=== PATIENT | female | born 2005 | race Two or more races ===

== ENCOUNTER → 2024-09-18 10:10 | Outpatient (REF) | payer BC, SELFPAY | LOC: RCS 10:10 | PROVIDERS: ATTENDING PHYSICIAN Internal Medicine | DX: R00.2 Palpitations (principal) | CPT/HCPCS: 93225; 93226 ==

== ENCOUNTER → 2024-11-13 07:42 | Outpatient (REF) | payer BC, SELFPAY | LOC: DHSLP 07:42 | PROVIDERS: ATTENDING PHYSICIAN Pediatrics Pediatric Pulmonology; FAMILY PHYSICIAN Internal Medicine | DX: G47.00 Insomnia, unspecified (principal); R06.83 Snoring | CPT/HCPCS: 95810 ==